=== PATIENT | male | born 1950 | race Caucasian/White ===

== ENCOUNTER → 2018-08-27 10:05 | Outpatient (CLI) | payer OTHER, SELFPAY ==
[2018-08-27 10:56] LABS: Add Manual Diff / Slide Review NO; Basophils Percent Auto 0.7 % (0-2); Eosinophils Percent Auto 1.2 % (2-4); Hematocrit 41.6 % (41-53); Lymphocytes Percent Auto 15.3 % (25-40); Mean Corpuscular HGB Conc 33.8 % (30-36); Mean Corpuscular Hemoglobin 29.9 PG (26-34); Mean Corpuscular Volume 88.7 fL (80-100); Monocytes Percent Auto 6.6 % (3-14); Neutrophils Absolute Auto 6500 /uL (3000-5900); Neutrophils Percent Auto 76.2 % (50-75); Platelet Count 338 X10^3/uL (150-400); Red Blood Cell Count 4.68 X10^6/uL (4.5-5.9); Red Cell Distribution Width 13.8 % (11.6-14.8); White Blood Cell Count 8.5 X10^3/uL (4.5-11.0)
[2018-08-27 16:56] LABS: Alanine Aminotransferase 35 IU/L (21-72); Albumin 4.6 g/dL (3.5-5.0); Albumin Globulin Ratio 1.6 (1.0-2.8); Alkaline Phosphatase 49 U/L (38-126); Aspartate Aminotransferase 30 IU/L (17-59); BUN Creatinine Ratio 22.5 (6-22); Bilirubin Total 1.6 mg/dL (0.2-1.3); Blood Urea Nitrogen 18 mg/dL (9-20); Calcium 9.7 mg/dL (8.4-10.2); Carbon Dioxide 29 mmol/L (22-32); Chloride 103 mmol/L (98-107); Cholesterol 204 mg/dL (140-199); Estimated Glomerular Filt Rate > 60.0 mL/min (>60); Globulin 2.8 g/dL (1.7-4.1); Glucose 84 mg/dL (80-110); HDL Cholesterol 53 mg/dL (40-60); HEMOLYSIS < 15 (0-50); LDL Cholesterol Calculated 135 mg/dL (<100); Potassium 4.7 mmol/L (3.4-5.1); Sodium 143 mmol/L (137-145); Total Protein 7.4 g/dL (6.3-8.2); Triglycerides 78 mg/dL (35-150)
== END ==
PROVIDERS: Visit Provider Registered Nurse
DX: E78.5 Hyperlipidemia, unspecified (principal); N41.9 Inflammatory disease of prostate, unspecified
CPT/HCPCS: 36415; 80053; 80061; 84153; 85025

== ENCOUNTER → 2018-10-08 07:39 | Outpatient (CLI) | payer OTHER, SELFPAY ==
[2018-10-08 08:42] LABS: Bilirubin Total 0.7 mg/dL (0.2-1.3)
[2018-10-08 09:10] LABS: Prostate Specific Antigen Scrn 5.93 ng/mL (0.1-4.0)
== END ==
PROVIDERS: Visit Provider Registered Nurse
DX: R97.20 Elevated prostate specific antigen [PSA] (principal); R17 Unspecified jaundice; Z12.5 Encounter for screening for malignant neoplasm of prostate
CPT/HCPCS: 36415; 82247; G0103

== ENCOUNTER → 2018-10-16 10:50 | Outpatient (CLI) | payer OTHER, SELFPAY ==
[2018-10-16 12:10] LABS: Alanine Aminotransferase 36 IU/L (21-72); Albumin 4.4 g/dL (3.5-5.0); Albumin Globulin Ratio 1.6 (1.0-2.8); Alkaline Phosphatase 45 U/L (38-126); Aspartate Aminotransferase 29 IU/L (17-59); BUN Creatinine Ratio 16.3 (6-22); Bilirubin Total 1.1 mg/dL (0.2-1.3); Blood Urea Nitrogen 13 mg/dL (9-20); Calcium 9.1 mg/dL (8.4-10.2); Carbon Dioxide 29 mmol/L (22-32); Chloride 102 mmol/L (98-107); Cholesterol 182 mg/dL (140-199); Estimated Glomerular Filt Rate > 60.0 mL/min (>60); Globulin 2.8 g/dL (1.7-4.1); Glucose 86 mg/dL (80-110); HDL Cholesterol 46 mg/dL (40-60); HEMOLYSIS < 15 (0-50); LDL Cholesterol Calculated 120 mg/dL (<100); Sodium 141 mmol/L (137-145); Total Protein 7.2 g/dL (6.3-8.2); Triglycerides 82 mg/dL (35-150)
== END ==
PROVIDERS: PCP Registered Nurse; Visit Provider Registered Nurse
DX: I10 Essential (primary) hypertension (principal); E78.5 Hyperlipidemia, unspecified
CPT/HCPCS: 36415; 80053; 80061

== ENCOUNTER → 2019-10-15 09:28 | Outpatient (CLI) | payer OTHER, SELFPAY ==
[2019-10-15 11:38] LABS: Prostate Specific Antigen 3.94 ng/mL (0.10-4.00)
== END ==
PROVIDERS: PCP Student in an Organized Health Care Education/Training Program; Visit Provider Student in an Organized Health Care Education/Training Program
DX: R97.20 Elevated prostate specific antigen [PSA] (principal); N40.1 Benign prostatic hyperplasia with lower urinary tract symptoms
CPT/HCPCS: 36415; 84153

== ENCOUNTER → 2020-12-13 13:04 | Outpatient (CLI) | payer OTHER, SELFPAY | PROVIDERS: PCP Student in an Organized Health Care Education/Training Program; Referring Provider Student in an Organized Health Care Education/Training Program; Visit Provider Student in an Organized Health Care Education/Training Program | DX: R97.20 Elevated prostate specific antigen [PSA] (principal) | CPT/HCPCS: 36415; 84153 ==

== ENCOUNTER → 2022-04-03 13:35 | Outpatient (CLI) | payer OTHER, SELFPAY ==
[2022-04-03 15:40] LABS: COVID19 -Nasal RAPID Negative (Negative)
== END ==
PROVIDERS: PCP Student in an Organized Health Care Education/Training Program; Visit Provider Family Medicine Sleep Medicine
DX: Z20.822 Contact with and (suspected) exposure to COVID-19 (principal)
CPT/HCPCS: 87635; C9803

== ENCOUNTER 2022-04-04 13:36 | Day surgery (SDC) | payer OTHER, SELFPAY ==
--- NOTE | 2022-04-04 10:51 | PM.HP.1 ---
History of Present Illness History of Present Illness Date Patient Seen: 04/04/22 Chief complaint: IDC Narrative: 71 year old male comes in today for consideration of a screening colonoscopy. Last colonoscopy in 2008 indicated for routine screening, normal. There have been no lower GI symptoms suggesting disease such as change in bowel habits, bleeding, abdominal pain or anemia. There's been no family history of colon cancer or colon polyps. Overall health issues have been stable, including no major cardiac events for at least 6 weeks. 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 Patient History Medical History (Updated 04/04/22 @ 14:05 by Nikki Byrd RN) Alcoholism Hypertension Hypothyroid Family & Social History Tobacco & Substance use: Smoking Status Never smoker alcohol intake former Meds Home Medications and Allergies Home Medications Medication Instructions Recorded Confirmed Type finasteride 5 mg tablet 5 mg PO DAILY #30 tab 02/18/19 04/04/22 Rx lisinopril 20 mg tablet 20 mg PO DAILY #90 tab 02/18/19 04/04/22 Rx doxazosin 4 mg tablet See Rx Instructions .ROUTE 06/10/20 04/04/22 Rx .COMPLEX #90 tab levothyroxine 50 mcg tablet See Rx Instructions .ROUTE .COMPLEX 04/04/22 04/04/22 History Allergies Allergy/AdvReac Type Severity Reaction Status Date / Time No Known Drug Allergies Allergy Verified 04/04/22 14:02 Review of Systems Review of Systems Narrative: All remaining ROS were reviewed and negative except as addressed. Exam Narrative Exam Narrative: GENERAL: Alert and oriented, appearing stated age and in no acute distress. HEENT: Head normocephalic/atraumatic. Extraocular movements intact. LUNGS: Clear to ausculation bilaterally, no wheezes, rhonchi or rales. CV: Normal S1 and S2 with regular rate and rhythm, no audible murmurs, rubs or gallops. ABDOMEN: Soft, non-tender, non-distended, no organomegaly. Positive bowel sounds. EXTREMITIES: No clubbing, cyanosis, or edema. NEURO: Cranial nerves II through XII grossly intact, no focal deficits. PSYCH: Alert and oriented x 3. SKIN: No concerning lesions. Assessment & Plan Assessment & Plan narrative: 1. Screening for colon cancer Plan for colonoscopy. The nature and character of the procedure as well as anticipated results were discussed. The possibility of not completing the procedure was also discussed. Possible complications including aspiration pneumonia, bleeding, perforation and reaction to medications either for sedation or preparation and missed lesions were discussed. Questions were answered and proceeding to the colonoscopy was elected. Informed consent signed. I sincerely appreciate the referral allowing me to participate in this patient's care. Please contact me with any questions or concerns.
--- NOTE | 2022-04-04 10:54 | PM.OP.COLON ---
Operative Date/Time/Diagnoses Date of procedure: 04/04/22 Procedure Notes SCOAP/Timeout: 2:52 p.m. Procedure in detail: ENDOSCOPIST: Nickie Sharma MD Sedation RN: Oliva Magaña RN Sedation start time: 2:53 p.m. Sedation end time: 3:08 p.m. PROCEDURE: Colonoscopy INDICATIONS: 1. Screening for colon cancer MEDICATION: Levsin 0.125 mg sublingual, incremental doses of Versed and fentanyl until appropriate level sedation achieved. ASA CLASS: 2 CECAL WITHDRAWAL TIME: 6 minutes COMPLICATIONS: None. EXTENT OF PROCEDURE: Cecum. QUALITY OF PREP: Good with portions of liquid stool. PROCEDURE: Prior to insertion of the colonoscope, a digital rectal examination was accomplished with circumferential palpation of the distal rectal mucosa without significant findings being noted. The high-definition colonoscope was passed into the rectum in the usual fashion and advanced over to the cecum without difficulty. The ileocecal valve, appendiceal stoma, and medial wall all could be inspected and no abnormalities were seen. ASCENDING COLON: As the colonoscope was withdrawn, care was taken to expose and inspect the haustral folds and no abnormalities were seen. HEPATIC FLEXURE: Normal, no polyps, diverticula or other abnormalities. TRANSVERSE COLON: Normal, no polyps, diverticula or other abnormalities. DESCENDING COLON: Normal, no polyps, diverticula or other abnormalities. SIGMOID COLON: Normal, no polyps, diverticula or other abnormalities. RECTUM: Normal. J maneuver was produced. There was no significant perianal disease. The J maneuver was broken. The remainder of the rectum was inspected and there was moderate external hemorrhoid disease. The scope was withdrawn. IMPRESSION: 1. Normal colonoscopy 2. External hemorrhoid disease, moderate PLAN: 1. Secondary to age, this can be patient's last screening colonoscopy. The possibility of a missed lesion including a malignancy has been discussed with the patient previously. Potential alarm symptoms have been discussed and should be reported immediately.
[2022-04-04] MEDS: HYOSCYAMINE 0.125 MG TABLET PO (13:56)
[2022-04-04 13:58] VITALS: BP 156/78; PULSE 79; RESP 14; TEMP 36.6; O2SAT 98; BMI 24.0
[2022-04-04] MEDS: LACTATED RINGERS 1,000 ML 200 ML IV (14:20)
[2022-04-04 14:33] VITALS: BMI 24.0
[2022-04-04] MEDS: MIDAZOLAM 5 MG/5 ML VIAL IV (14:58)
[2022-04-04] MEDS: fentaNYL 250 MCG/5 ML INJ 125 MCG IV (14:58)
[2022-04-04 15:12] VITALS: BP 125/76; PULSE 69; RESP 11; TEMP 36.5; O2SAT 97
--- NOTE | 2022-04-04 15:14 | SUR.PHASEI ---
Patient to recovery s/p colonoscopy with nursing staff in stable condition; lying on left side; abdomen soft; vss; no distress noted. RR even and unlabored. Dr Sharma at bedside speaking to patient.
[2022-04-04 15:22] VITALS: BP 119/74; PULSE 67; RESP 11; O2SAT 97
[2022-04-04 15:26] VITALS: BP 133/82; PULSE 73; RESP 15; O2SAT 98
--- NOTE | 2022-04-04 15:45 | SUR.PHASEII ---
Attempted to call pt's ride x 4 and left messages. pt is eating a snack and is waiting on his ride. Ride is not answering phone at present. Pt will continue to await ride.
--- NOTE | 2022-04-04 16:02 | SUR.PHASEII ---
[employer] called, now available. 20 minutes out.
[2022-04-04 16:15] VITALS: BP 117/70; PULSE 67; RESP 18; TEMP 36.3; O2SAT 97
--- NOTE | 2022-04-04 16:36 | SUR.PHASEII ---
Pt left when ready and left in stable condition.
== END 2022-04-04 16:25 | disposition home or self-care (01) ==
PROVIDERS: PCP Internal Medicine; Referring Provider Student in an Organized Health Care Education/Training Program; Visit Provider Student in an Organized Health Care Education/Training Program
PROC: 0DJD8ZZ Inspection of Lower Intestinal Tract, Via Natural or Artificial Opening Endoscopic (ICD-10-PCS; CPT 45378; principal; 2022-04-04 14:30)
DX: Z12.11 Encounter for screening for malignant neoplasm of colon (principal); I10 Essential (primary) hypertension; E03.9 Hypothyroidism, unspecified; K64.4 Residual hemorrhoidal skin tags
CPT/HCPCS: 45378; J2250; J3010

== ENCOUNTER → 2022-06-13 08:52 | Outpatient (CLI) | payer OTHER, SELFPAY ==
[2022-06-13 12:27] LABS: Prostate Specific Antigen 2.54 ng/mL (0.10-4.00)
== END ==
PROVIDERS: PCP Internal Medicine; Referring Provider Specialist; Visit Provider Specialist
DX: R97.20 Elevated prostate specific antigen [PSA] (principal)
CPT/HCPCS: 36415; 84153

== ENCOUNTER → 2022-09-12 08:20 | Outpatient (CLI) | payer OTHER, SELFPAY ==
[2022-09-12 11:41] LABS: Prostate Specific Antigen 3.98 ng/mL (0.10-4.00)
== END ==
PROVIDERS: PCP Internal Medicine; Referring Provider Specialist; Visit Provider Specialist
DX: R97.20 Elevated prostate specific antigen [PSA] (principal)
CPT/HCPCS: 36415; 84153

== ENCOUNTER → 2023-09-10 08:01 | Outpatient (CLI) | payer OTHER, SELFPAY | PROVIDERS: PCP Internal Medicine; Referring Provider Specialist; Visit Provider Specialist | DX: R97.20 Elevated prostate specific antigen [PSA] (principal) | CPT/HCPCS: 36415; 84153 ==

== ENCOUNTER → 2024-03-10 07:30 | Outpatient (CLI) | payer OTHER, SELFPAY ==
[2024-03-10 09:55] LABS: Prostate Specific Antigen 3.22 ng/mL (0.10-4.00)
== END ==
PROVIDERS: PCP Internal Medicine; Referring Provider Specialist; Visit Provider Specialist
DX: R97.20 Elevated prostate specific antigen [PSA] (principal)
CPT/HCPCS: 36415; 84153

== ENCOUNTER → 2024-06-26 08:37 | Outpatient (CLI) | payer MEDICARE, OTHER, SELFPAY ==
[2024-06-26 11:02] LABS: Prostate Specific Antigen 3.11 ng/mL (0.10-4.00)
== END ==
PROVIDERS: PCP Internal Medicine; Referring Provider Specialist; Visit Provider Specialist
DX: R97.20 Elevated prostate specific antigen [PSA] (principal)
CPT/HCPCS: 36415; 84153

== ENCOUNTER → 2024-12-24 16:28 | Outpatient (CLI) | payer OTHER, SELFPAY ==
[2024-12-24 18:16] LABS: Prostate Specific Antigen 1.96 ng/mL (0.10-4.00)
== END ==
PROVIDERS: PCP Internal Medicine; Referring Provider Urology; Visit Provider Urology
DX: R97.20 Elevated prostate specific antigen [PSA] (principal)
CPT/HCPCS: 36415; 84153

== ENCOUNTER → 2025-08-05 08:28 | Outpatient (CLI) | payer OTHER, SELFPAY ==
[2025-08-05 09:58] LABS: Prostate Specific Antigen 2.85 ng/mL (0.10-4.00)
== END ==
PROVIDERS: PCP Family Medicine; Referring Provider Urology; Visit Provider Urology
DX: N40.1 Benign prostatic hyperplasia with lower urinary tract symptoms (principal); N13.8 Other obstructive and reflux uropathy
CPT/HCPCS: 36415; 84153